=== PATIENT | male | born 1960 | race Caucasian/White ===

== ENCOUNTER → 2019-04-14 12:27 | Outpatient (CLI) | payer MEDICAID ==
[2016-04-09 11:10] VITALS: BMI 31.9
[~2019-04-14 12:27] MED LIST: DILAUDID2 MG PO; ELAVIL25 MG PO; FENOFIBRATE134 MG PO; JANUMET 50-5001 TAB PO; LISINOPRIL2.5 MG PO; LYRICA75 MG PO; MOBIC7.5 MG PO; PERCOCET 7.5/321 TAB PO; PRAVASTATIN SOD10 MG PO; PRILOSEC20 MG PO; TANZEUM50 MG/0.5 SC
== END | disposition home or self-care (01) ==
LOC: D.MRI 12:27
PROVIDERS: ATTEND Orthopaedic Surgery
DX: S83.231A Complex tear of medial meniscus, current injury, right knee, initial encounter (principal); X58.XXXA Exposure to other specified factors, initial encounter

== ENCOUNTER 2019-05-07 06:05 | Day surgery (SDC) | payer MEDICAID ==
[2019-05-05 08:47] LABS: HEMATOCRIT 41.9 % (42.0-54.0); HEMOGLOBIN 14.7 g/dL (13.5-17.5); MCH 31.3 pg (26.0-34.0); MCHC 35.1 g/dL (31.0-37.0); MCV 89.1 fL (80.0-100.0); MEAN PLATELET VOLUME 10.1 fL (7.4-10.4); RBC 4.7 10x6/uL (4.20-6.10); RDW 12.4 % (11.5-14.5); WBC 4.7 10x3/uL (4.8-10.8)
[2019-05-05 09:05] LABS: ANION GAP 13.3 mmol/L (8-16); CALCIUM 9.4 mg/dL (8.5-10.1); CARBON DIOXIDE 29.7 mmol/L (21.0-32.0); CREATININE - SERUM 1.1 mg/dL (0.6-1.3)
[~2019-05-07] VITALS: Ht 182.9 cm; Wt 97.5 kg
[~2019-05-07 06:05] MED LIST changes: +GLUCOPHAGE1000 MG PO; +TRAZODONE HCL150 MG PO
[2019-05-07 07:09] VITALS: BP 113/65; Ht 182.9 cm; Wt 97.5 kg
[2019-05-07] MEDS ORDERED: HYDROCODON-ACE1 EA10 PO (09:11)
--- NOTE | 2019-05-14 11:34 | OP ---
PATIENT NAME: HARSH DAVIS MEDICAL RECORD: [id number] LOCATION:D.OPS ADMISSION DATE: SURGEON: ROSA SALTER MD DATE OF OPERATION: 05/07/2019 PREOPERATIVE DIAGNOSIS: Medial meniscus tear of the right knee. POSTOPERATIVE DIAGNOSIS: Medial meniscus tear of the right knee. PROCEDURE: Arthroscopic partial medial meniscectomy of the right knee. SURGEON: Rosa Salter MD ANESTHESIA: General. INTRAOPERATIVE COMPLICATIONS: None. 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 OPERATIVE SUMMARY IN DETAIL: After obtaining the appropriate preoperative orthopedic surgery consent as well as anesthetic consultation, evaluation and clearance, the patient was brought to the operating room and placed on the operating table in supine position. After adequate general laryngeal mask airway was administered, tourniquet was placed about the proximal aspect of the right lower extremity. Right lower extremity was then prepped and draped in routine sterile fashion. The leg was elevated and exsanguinated, tourniquet was inflated to 350 mmHg. Routine inferolateral portal was established followed by superomedial portal and inferomedial portal. Diagnostic arthroscopy did show the patient to have the above findings. Combination of full radius resector as well as an arthroscopic meniscotome were utilized to debride the meniscus back to stable meniscal elements. Having completed this, the knee was insufflated with 30 cc of 0.25% Marcaine with epinephrine and 40 mg of Depo-Medrol. Arthroscopy portals were closed in routine interrupted fashion using 4-0 Prolene. Sterile dressings were applied. The patient was awakened and taken to recovery room in stable condition. All final needle and sponge counts were correct. TRANSINT:[id number] Voice Confirmation ID: [id number] DOCUMENT ID: [id number] ROSA SALTER MD at 1134 CC: [id number] DICTATION DATE: 05/13/19 0949 EDITING COMPUTER PUBLISHER: 05/13/19 1210 DEP [facility] [place], [place] 05/07/19 [place] [address]
== END 2019-05-07 11:22 | disposition home or self-care (01) ==
LOC: D.OPS 06:05 → D.PAN 11:15 → D.OPS 11:22
PROVIDERS: Anesthesiology; ATTEND Orthopaedic Surgery
DX: S83.231A Complex tear of medial meniscus, current injury, right knee, initial encounter (principal); X58.XXXA Exposure to other specified factors, initial encounter; Z01.812 Encounter for preprocedural laboratory examination

== ENCOUNTER 2019-06-02 13:20 | Emergency (ER) | payer MEDICAID ==
[~2019-06-02] VITALS: Ht 182.9 cm; Wt 99.1 kg
[~2019-06-02 13:20] MED LIST changes: +HYDROCODON-ACE1 EA10 PO
[2019-06-02 13:24] VITALS: Ht 182.9 cm; Wt 99.1 kg
[2019-06-02] MEDS ORDERED: VOLTAREN75 MG PO (14:53)
[2019-06-02] MEDS ORDERED: BACLOFEN20 M1 PO (14:53)
[2019-06-02 18:09] VITALS: BP 136/81
== END 2019-06-02 15:45 | disposition home or self-care (01) ==
LOC: D.ER 13:20
DX: M54.32 Sciatica, left side (principal); M62.838 Other muscle spasm

== ENCOUNTER → 2019-09-21 09:27 | Outpatient (CLI) | payer MEDICAID ==
[2019-06-02 13:24] VITALS: BMI 29.6
[~2019-09-21 09:27] MED LIST changes: +BACLOFEN20 M1 PO; +VOLTAREN75 MG PO
== END | disposition home or self-care (01) ==
LOC: D.MRI 09:27
PROVIDERS: ATTEND Clinical Nurse Specialist Family Health
DX: M25.561 Pain in right knee (principal)